=== PATIENT | male | born 1945 | race Caucasian/White ===

== ENCOUNTER → 2016-11-27 | Day surgery (SDC) | payer MEDICARE ==
[2015-06-22 09:19] VITALS: BMI 25.7
[~2016-11-27] MED LIST: BUPIVACAINE 0.5% 30 ML VIAL ONE; CEFAZOLIN 1 GM VIAL ONE; FENTANYL 100 MCG/2 ML VIAL IV ONE; FENTANYL 100 MCG/2 ML VIAL IV PRN; HYDROmorphone 1 MG INJECTION IV PRN; LABETALOL 20 MG/4 ML SYRINGE IV PRN; LIDOCAINE 100 MG PFS IV ONE; MEPERIDINE 25 MG/ML TUBEX IV PRN; ONDANSETRON HCL 4 MG ODT TAB PO PRN; ONDANSETRON HCL 4 MG/2 ML VIAL IV ONE; ONDANSETRON HCL 4 MG/2 ML VIAL IV PRN; OXYCODONE HCL 5 MG TABLET ONE; PROPOFOL 200 MG/20 ML VIAL IV ONE; TAMSULOSIN HCL 0.4 MG CAP PO ONE; hydrALAZINE 20 MG/ML VIAL IV PRN
--- NOTE | 2016-11-27 07:45 | HIM.ANES ---
Anesthesia Evaluation & Plan Diagnoses: UNIL INGUINAL HERNIA, W/O OBST OR GANGR, NOT SPCF RECUR (11/27/16) Consented Procedure: LEFT INGUINAL HERNIORRAPHY WITH MESH - Focused Review of Systems Cardiac History: Yes: Hx Hypertension, Hx Cardia Arrhythmia (PALPITATIONS), Hx Cardiac Disorders, Hx Abnormal Cholesterol/Hyperlipidemia HEENT: Yes: Hx Dysphagia, Hx Vision Problem (GLASSES), Other HEENT Problems Hx Other HEENT Surgery: TONSILLECTOMY Respiratory: Yes: Hx Snoring Gastrointestinal: Yes: Hx Gastroesophageal Reflux Disease, Hx Gastrointestinal Disorders, Hx Colonoscopy (06/2015), Hx Endoscopy (06/2015), Hx Esophageal Dilatation (06/2015) Neurological/Musculoskeletal: Yes: Hx Neurological Disorders Psychological: Yes Hx Mental/Emotional Disorders HX Other Psyco/Soc Problems: INSOMNIA Blood/Autoimmune: Yes: Hx Blood Transfusions No: Hx AIDS, Hx Hepatitis (type) Smoking Status: Never smoker Hx Stress Test (date): Yes (03/18/2015 NO ISCHEMIA EF 73%) Hx Echocardiogram (date): Yes (04/01/2015 EF 57% MILD MR, TR) Surgical History: Yes: Back (LUMBAR BACK SURGERY AGE 29, AGE 49, LAST SX 2003) , Knee (RT TKA 2013) Other Surgical History: TONSILLECTOMY - Focused Physical Exam NPO since: 11/26/16 1400 Mallampati: Class II Thyromental Distance: Greater than 3 Neck: Full Range of Motion Cardiovascular/Chest: Normal (RRR no mumurs or rubs.) Respiratory: Lungs clear. negative: Rhonchi, Wheezing Any problems with anesthesia, including nausea and vomiting?: No Any relatives with a history of Malignant Hyperthermia?: No Beta Kizzy given (if appropriate): Yes Does the patient have a history of Motion Sickness-: No Other: Allergies Allergy/AdvReac Type Severity Reaction Status Date / Time gemfibrozil [From Lopid] Allergy Unknown Verified 11/27/16 07:26 MAXIDE Allergy Unknown Uncoded 11/27/16 07:26 Home Medications Medication Instructions Recorded Last Taken Type Benazepril/Hydrochlorothiazide 1 tab PO DAILY 06/22/15 11/27/16 03:30 History [Benazepril-Hctz 10-12.5 mg Tab] Gabapentin [Neurontin] 300 mg PO TID 06/22/15 11/27/16 03:30 History Hydrocodone Bit/Acetaminophen 1 tab PO TID PRN 06/22/15 11/27/16 03:30 History [Lortab 5-500 Tablet] Metoprolol Tartrate [Lopressor] 25 mg PO BID 06/22/15 11/27/16 03:30 History Omeprazole [Prilosec] 20 mg PO BID 06/22/15 11/26/16 15:00 History Pravastatin Sodium [Pravachol] 80 mg PO HS 06/22/15 11/26/16 18:00 History Ascorbic Acid [Vitamin C] 1,000 mg PO DAILY 11/22/16 11/26/16 07:00 History Cholecalciferol (Vitamin D3) 1,000 unit PO DAILY 11/22/16 11/26/16 07:00 History [Vitamin D3] Temazepam [Restoril] 15 mg PO HS 11/22/16 11/26/16 18:00 History Height and Weight Patient's height 5 ft 7 in Patient's weight 77.111 kg BMI 25.7 Vital Signs Temperature 98.6 F 11/27/16 07:15 Pulse Rate 65 11/27/16 07:15 Respiratory Rate 18 11/27/16 07:15 Blood Pressure 151/98 11/27/16 07:15 Pulse Oxygen Saturation 99 11/27/16 07:15 - Anesthetic Plan Anesthesia Type: General ASA Class: 3 -: I have examined this patient and reviewed the medical record. The patient has been assessed prior to anesthesia. Risks and benefits of anesthesia and anesthetic technique options have been discussed and all questions answered. The patient accepts the risk and desires me to proceed with the planned anesthetic.
--- NOTE | 2016-11-27 09:02 | HIMOPRPT ---
DATE OF PROCEDURE: 11/27/16 PREOPERATIVE DIAGNOSIS: Left inguinal hernia. POSTOPERATIVE DIAGNOSIS: Left inguinal hernia. PROCEDURE: Left inguinal herniorrhaphy with mesh SURGEON: David Samuels DO. ANESTHESIA: General, LMA ANESTHESIOLOGIST: Dr. Greg Masters DRAINS: None. COMPLICATIONS: None. PATIENT CONDITION: Stable. SPECIMEN: None. ESTIMATED BLOOD LOSS: 5 ml. INDICATIONS: This is a 71-year-old M with with left inguinal hernia. It was recommended to the patient left inguinal herniorrhaphy with mesh. The risks associated with operation were discussed with the patient in detail to include, but not limited to bleeding, infection, infection of mesh, necessitating removal , injury to intra-abdominal blood vessels, injury to small or large intestine, deep vein thrombosis, resultant pulmonary embolism, perioperative cardiac and respiratory morbidity and mortality, injury to cutaneous nerves involving paresthesia, possibly chronic pain, intracutaneous fistula, and hernia recurrence. All questions were answered. Informed consent was obtained. FINDINGS: The patient had a medium sized indirect left inguinal hernia. No direct component was identified. Bard Medium Perfix Plug was placed. PROCEDURE IN DETAIL: MAY DOMINGUEZ was taken to the operative suite at [facility] and placed in supine position. General anesthesia was induced. After successful completion of this, left inguinal area was clipped free with hair electric clippers. The patient was then sterilely prepped and draped in the usual fashion. All members of surgical team were in agreement of correct patient and correct procedure. Oblique incision was made over the inguinal canal, carried down to the subcutaneous tissue. Bridging vein was doubly clamped, cut between, and clamps were placed with 2-0 silk ties. The Liv's fascia was incised to the length of skin incision. External oblique fascia was incised to the length of skin incision. Spermatic cord was circumferentially isolated, elevated with [place] drain. The floor of the canal was explored with findings as described above. The ilioinguinal nerve and iliohypogastric nerves were not identified on careful dissection and exploration. The hernia sac was dissected free from the spermatic cord and examined with no evidence of incarcerated small or large intestine or omentum. It was placed back in preperitoneal space. Bard Medium Perfix plug was placed within the indirect hernia opening, sutured in place the shelving portion of the inguinal ligament x1 and sutured in place to the internal oblique fascia x1, these with U sutures and with 2-0 Vicryl suture. Onlay mesh was sutured to Óscar's ligament, shelving portion of inguinal ligament, internal oblique fascia and musculature and to the previously placed mesh plug, sutured laterally forming a new internal ring and suture medially also to the mesh plug. The area was irrigated and aspirated dry. Mesh was identified as laying out flat, but not tight. The area was irrigated and aspirated dry. Hemostasis was excellent. External oblique fascia was closed with running 3-0 Vicryl suture. The Liv's fascia was closed with plain suture. Skin was closed with 4-0 Monocryl subcuticular stitch after infiltration of anesthetic. Dermabond was applied. Sterile occlusive dressing was applied over this. Anesthesia was reversed. The patient was taken to recovery, having tolerated this procedure well.
[2016-11-27] MEDS: FENTANYL 100 MCG/2 ML VIAL ONE ×2 (09:15→09:20)
[2016-11-27 11:45] VITALS: TEMP 98
[2016-11-27 11:59] VITALS: PULSE 61
[2016-11-27 15:46] VITALS: BP 182/92
--- NOTE | 2016-11-27 15:46 | SC.ANESPOS ---
Post-Anesthesia Note LOC: Fully Awake Post-Anesthesia Assessment: Awake, Returned to Baseline, Hemodynamically Stable , Pain Control Adequate Phase I & II Recovery Complete: Yes Apparent Anesthesia Complication: No : N PACU Discharge Time: 09:45 - Vital Signs Blood Pressure: 182/92 Pulse: 61 Resp Rate: 18 O2 Sat: 99 Temp: 98.0 F - Comments Anesthesia Discharge Time Report Time 09:45
== END ==
LOC: SDC 06:48
PROVIDERS: ATTEND Surgery
PROC: 0YU60JZ Supplement Left Inguinal Region with Synthetic Substitute, Open Approach (ICD-10-PCS; principal; 2016-11-27 08:05)
DX: K40.90 Unilateral inguinal hernia, without obstruction or gangrene, not specified as recurrent (principal); I10 Essential (primary) hypertension; N40.0 Benign prostatic hyperplasia without lower urinary tract symptoms; E78.5 Hyperlipidemia, unspecified; G47.00 Insomnia, unspecified; M19.90 Unspecified osteoarthritis, unspecified site; K21.9 Gastro-esophageal reflux disease without esophagitis; I86.8 Varicose veins of other specified sites; Z79.899 Other long term (current) drug therapy
CPT/HCPCS: 49505; A9270; C1781; J0690; J3010; J2001; J2405; J3490